=== PATIENT | male | born 1980 | race Two or more races ===

== ENCOUNTER 2017-02-12 09:51 | Observation (INO) | payer BC ==
[~2017-02-12] VITALS: Ht 162.6 cm; Wt 58.3 kg
[2017-02-12 10:38] LABS: HEMATOCRIT 45.8 % (38.0-50.0); MCH 30.8 PG (29.0-34.0); MCHC 34.7 G/DL (30.0-36.0); MCV 88.6 FL (86-99); MEAN PLAT.VOLUME 8.8 uM^3 (9.0-12.4); PLATELET COUNT 360 K/uL (156-360); RBC DIS.WIDTH-CV 13.4 % (11.8-14.6); RED BLOOD COUNT 5.17 M/uL (4.00-5.50); WHITE BLOOD COUNT 5.7 K/uL (4.1-10.2)
[2017-02-12 10:47] LABS: CHLORIDE 107 mEq/L (99-109); SODIUM 141 mEq/L (136-147)
[2017-02-12 10:49] LABS: GLUCOSE 105 mg/dL (70-99)
[2017-02-12 10:50] LABS: ANION GAP 11 MEQ/L (2-14)
[2017-02-12 10:53] LABS: UREA NITROGEN (BUN) 20 mg/dL (9-23)
[2017-02-12 10:54] LABS: GFR ESTIMATE (CALCULATED) > 59 mL/min/
[2017-02-12 11:00] LABS: TROP-I INTERPRETATION NEGATIVE; TROPONIN-I < 0.01 ng/mL (0.0-0.30)
[2017-02-12 12:42] LABS: PTT 28.7 SEC (25-37)
[2017-02-12 14:29] LABS: Estimated Average Glucose 123 mg/dL (70-123); HEMOGLOBIN A1c (GLYCOHEMOGLOB) 5.9 % HGB (Below 5.7)
[2017-02-12 15:11] LABS: SAMPLE HEMOLYSIS CHECK 0; SAMPLE ICTERIC CHECK 0; SAMPLE LIPEMIA CHECK 0
[2017-02-12 15:17] LABS: HDL CHOLESTEROL 59 MG/DL (Desirable>=40); LDL CHOLESTEROL 138 mg/dL (Desirable<100); NON-HDL CHOLESTEROL 161 mg/dL (Desirable<160); TOTAL CHOLESTEROL 220 mg/dL (Desirable<200); TRIGLYCERIDES 113 MG/DL (Normal: <150)
[2017-02-12 16:54] VITALS: BP 133/64
[2017-02-12 17:24] LABS: TROP-I INTERPRETATION NEGATIVE; TROPONIN-I < 0.01 ng/mL (0.0-0.30)
[2017-02-12 17:40] LABS: AMPHETAMINES QUANT VALUE 0 NG/ML; BARBITUATES QUANT VALUE 0 NG/ML; BENZODIAZEPINES QUANT VALUE 0 NG/ML; BENZODIAZEPINES, URINE SCREEN Negative (200 ng/mL); MARIJUANA QUANT VALUE 0 NG/ML; OPIATES QUANTITATIVE VALUE 0 NG/ML; PHENCYCLIDINE QUANT VALUE 0 NG/ML
[2017-02-12 23:49] VITALS: BP 130/75
[2017-02-12 23:54] LABS: TROP-I INTERPRETATION NEGATIVE; TROPONIN-I < 0.01 ng/mL (0.0-0.30)
[2017-02-13 04:51] VITALS: BP 116/64
[2017-02-13 05:50] LABS: TROP-I INTERPRETATION NEGATIVE; TROPONIN-I < 0.01 ng/mL (0.0-0.30)
[2017-02-13 07:52] VITALS: BP 105/67
[2017-02-13] MEDS ORDERED: ASPIR-LOW81 MG PO (12:29)
[2017-02-13] MEDS ORDERED: ATORVASTATIN CA80 MG PO (12:29)
== END 2017-02-13 15:55 | disposition home or self-care (01) ==
LOC: EME 09:51 → EDOF 12:47 → 5WEST 12:47 → EDOF 12:47 → ENRESERV 12:48 → EDOF 13:06 → ENRESERV 16:07 → 5WEST 16:42
PROVIDERS: Emergency Medicine; Internal Medicine; Internal Medicine Cardiovascular Disease
DX: R07.89 Other chest pain (principal); R00.2 Palpitations; R94.31 Abnormal electrocardiogram [ECG] [EKG]
CPT/HCPCS: 71010; 80048; 80061; 80306 90; 83036; 84443; 84484; 85027; 85610; 85730; 93005; 93306; 99281; 99285; G0378